=== PATIENT | female | born 1965 | race Hispanic/Latino ===

== ENCOUNTER 2018-09-05 16:36 | Observation (INO) | payer OTHER ==
[2018-09-05 17:11] VITALS: BMI 32.2
[2018-09-05] MEDS ORDERED: Sodium Chloride 0.9% 1,000 ML IV STA (17:17)
[2018-09-05] MEDS ORDERED: Alum-Mag Hydrox-Simethicone Susp (30 mL) PO STA (17:17)
[2018-09-05] MEDS ORDERED: Atrop/Hyosc/Scopal/PB Elixir (120 ml) PO STA (17:19)
[2018-09-05 17:40] LABS: URINE BILIRUBIN NEGATIVE (NEGATIVE); URINE BLOOD NEGATIVE (NEGATIVE); URINE GLUCOSE (UA) NEGATIVE (NEGATIVE); URINE LEUKOCYTE ESTERASE SMALL Leu/uL (NEGATIVE); URINE PROTEIN NEGATIVE mg/dL (<30 mg/dL); URINE UROBILINOGEN 0.2 E.U./dL (<1 E.U./dL)
[2018-09-05 17:41] LABS: URINE APPEARANCE CLEAR (CLEAR); URINE COLOR YELLOW (YELLOW)
[2018-09-05 17:51] LABS: URINE BACTERIA SMALL /hpf; URINE RBC 0 - 2 /hpf (0-2)
[2018-09-05 18:06] LABS: BASO # 0.06 K/mm3 (0.0-2.0); BASO % 0.5 % (0.0-3.0); EOS # 0.6 (0.0-0.7); EOS % 5.2 % (1.5-5.0); HEMOGLOBIN 13.3 g/dL (12.0-16.0); LYMPH # 3.3 (1.2-3.4); LYMPH % 28.8 % (22.0-35.0); MEAN CORPUSCULAR HEMOGLOBIN 30.2 pg (25.0-35.0); MEAN CORPUSCULAR HGB CONC 32.5 g/dl (31.0-37.0); MEAN PLATELET VOLUME 9.3 fl (7.0-11.0); MONO # 1.1 (0.1-0.6); MONO % 9.2 % (1.0-6.0); RBC 4.4 10^6/uL (3.5-6.1); RED CELL DISTRIBUTION WIDTH 13.8 % (11.5-14.5); VENOUS BLOOD GAS BASE EXCESS 10.1 mmol/L (0.0-2.0); VENOUS BLOOD GAS PO2 94 mm/Hg (30-55); VENOUS BLOOD PH 7.43 (7.32-7.43); WHITE BLOOD COUNT 11.5 10^3/uL (4.5-11.0)
[2018-09-05 18:16] LABS: ALB/GLOB RATIO 1.2 (1.1-1.8); ALBUMIN 3.8 g/dL (3.0-4.8); ALT/SGPT 25 U/L (7-56); AST/SGOT 32 U/L (14-36); BLOOD UREA NITROGEN 27 mg/dL (7-21); CALCIUM 9.1 mg/dL (8.4-10.5); GFR NON-AFRICAN AMERICAN > 60; INR 0.87; LIPASE 80 U/L (23-300); PARTIAL THROMBOPLASTIN TIME 29.8 Seconds (26.9-38.3)
[2018-09-05 18:18] LABS: PROTHROMBIN TIME 9.7 SECONDS (9.4-12.5)
[2018-09-05 18:27] LABS: TROPONIN I < 0.01 ng/mL
[2018-09-05] MEDS ORDERED: Iohexol 350 MG/100 ML VIAL ONE (18:43)
--- NOTE | 2018-09-05 18:50 | US ---
Date of service: 09/05/2018 HISTORY: abdominal pain r/o gallstones COMPARISON: None. TECHNIQUE: Grayscale imaging was performed. FINDINGS: LIVER: Measures 14.5 cm. There is diffuse increased echogenicity of the liver parenchyma. No mass. No intrahepatic bile duct dilatation. GALLBLADDER: There are no gallstones, wall thickening or pericholecystic fluid. The sonographic Rosario's sign is negative. COMMON BILE DUCT: Measures 3.0 mm. No stones. No dilatation. PANCREAS: Unremarkable as visualized. No mass. No ductal dilatation. RIGHT KIDNEY: Measures 9.7cm. Normal echogenicity. No calculus, mass, or hydronephrosis. LEFT KIDNEY: Measures 10.2cm. Normal echogenicity. No calculus, mass, or hydronephrosis. SPLEEN: Normal in size and contour. No mass. AORTA: No aneurysmal dilatation. IVC: Unremarkable. OTHER FINDINGS: None. IMPRESSION: Diffuse increased echogenicity in the liver may reflect hepatic steatosis however parenchymal infectious/ inflammatory etiologies cannot be entirely excluded. Clinical and laboratory correlation is advised. No cholelithiasis or biliary dilatation.
--- NOTE | 2018-09-05 18:53 | ED PDOC ---
Arrival/HPI - General Chief Complaint: Back Pain Time Seen by Provider: 09/05/18 17:17 - History of Present Illness Narrative History of Present Illness (Text): 09/05/18 18:47 Patient is a 53F w/a PMH of depression/anxiety, hypothyyroidism, htn, copd Presenting from PMD Dr. Velazquez office where she was complaining of RUQ and R flank. Attending requested evaluation of pain and r/o of cholecystitis. Patient reports pain has been slowly worsening over the past 1 week describes pain is located in her LUQ and RUQ w/ radiation into her flank. Pain is a sharp sensation. Patient reported that pain is not associated w/ eating however movement aggravates pain. Patient reported 1 week ago she saw her primary for bronchitis treatment w/ levofloxacin + prednisone; and associated her abdominal / flank pain with coughing. Brochitis symptoms have resolved at this time. She did report some nausea earlier in the day today however does not have complaints of n/v/d/c at this time. She also denies any chest pain, sob, ayala, dysuria, change in frequency. Remainder 12 system ROS is otherwise negative. PMD: [place] PMH: As above PSH: Denies ALL: NKDA Home RX: as per EMR Social: 07/24 ppd active smoker, etoh denies, illicit denies 09/05/18 20:06 Time/Duration: Prior to Arrival Symptom Onset: Gradual Symptom Course: Worsening Quality: Stabbing Past Medical History - Provider Review Nursing Documentation Reviewed: Yes - Infectious Disease Hx of Infectious Diseases: None - Reproductive Currently : No - Cardiac Hx Hypertension: Yes - Pulmonary Hx Chronic Obstructive Pulmonary Disease (COPD): Yes (Smoker) - Endocrine/Metabolic Hx Hypothyroidism: Yes - Musculoskeletal/Rheumatological Hx Back Pain: Yes - Psychiatric Hx Anxiety: Yes Hx Substance Use: No - Anesthesia Hx Anesthesia: Yes Hx Anesthesia Reactions: No Hx Malignant Hyperthermia: No Family/Social History - Physician Review Nursing Documentation Reviewed: Yes Family/Social History: Unknown Family HX Smoking Status: Heavy Smoker > 10 Cigarettes Daily Hx Alcohol Use: No Hx Substance Use: No Allergies/Home Meds Allergies/Adverse Reactions: Allergies No Known Allergies Allergy (Verified 09/05/18 16:47) Home Medications: Home Meds Medication Instructions Recorded Confirmed ALPRAZolam [Xanax] 1 tab PO BID 09/05/18 09/05/18 Albuterol 0.083% [Albuterol 0.083% 1 vial IH Q6H PRN 09/05/18 09/05/18 Inhal Alisa (2.5 mg/3 ml) UD] Benzonatate [Tessalon Perles] 200 mg PO TID PRN 09/05/18 09/05/18 Budesonide/Formoterol Fumarate 1 puff IH BID 09/05/18 09/05/18 [Symbicort 160-4.5 Mcg Inhaler] Escitalopram [Lexapro] 1 tab PO DAILY 09/05/18 09/05/18 Irbesartan/Hydrochlorothiazide 1 tab PO DAILY 09/05/18 09/05/18 [Irbesartan-Hctz 300-12.5 mg Tb] Levothyroxine [Synthroid] 1 tab PO DAILY 09/05/18 09/05/18 buPROPion [Wellbutrin] 1 tab PO TID 09/05/18 09/05/18 Review of Systems - Physician Review All systems were reviewed & negative as marked: Yes - Review of Systems Constitutional: Normal Eyes: Normal ENT: Normal Respiratory: Normal Cardiovascular: Normal Gastrointestinal: Abdominal Pain, Nausea. absent: Stool Changes, Diarrhea, Vomiting, Appetite Changes Genitourinary Female: Normal Musculoskeletal: Back Pain Skin: Normal Neurological: Normal Endocrine: Normal Hemo/Lymphatic: Normal Psychiatric: Normal Physical Exam Vital Signs Reviewed: Yes Vital Signs Temp Pulse Resp BP Pulse Ox 09/05/18 16:52 97.8 F 99 H 18 134/86 98 Temperature: Afebrile Blood Pressure: Normal Pulse: Regular Respiratory Rate: Normal Appearance: Positive for: Well-Appearing, Non-Toxic, Comfortable Pain Distress: None Mental Status: Positive for: Alert and Oriented X 3 - Systems Exam Head: Present: Atraumatic, Normocephalic Pupils: Present: PERRL Conjunctiva: Present: Normal Mouth: Present: Moist Mucous Membranes Respiratory/Chest: Present: Clear to Auscultation, Good Air Exchange. No: Respiratory Distress, Accessory Muscle Use Cardiovascular: Present: Regular Rate and Rhythm, Normal S1, S2. No: Murmurs Abdomen: Present: Tenderness, Other (LUQ and RUQ tenderness to palpation; ). No: Distention, Guarding Lower Extremity: Present: Normal Inspection. No: Edema Neurological: Present: GCS=15, CN II-XII Intact Skin: Present: Warm, Dry, Normal Color. No: Rashes Psychiatric: Present: Alert, Oriented x 3 Medical Decision Making ED Course and Treatment: 09/05/18 20:13 53F c/o of abdominal pain located int eh RRUQ, LUQ and R flank VSS; Tenderness to palpation on exam CTAP read pending ABd US w/ hepatic steatosisi; no gallbladder disease noted CBC mild leukocytosis UA pyuria w/ bacteruria and leuk esterase Pending CT read at this time 09/05/18 20:[address] scan negative contacted Dr. Ulrich who recommends appropriate analgesic management and discharge to follow up in office Will DC w/ toradol - Lab Interpretations Lab Results: pO2 94 mm/Hg (30-55) H 09/05/18 17:50 VBG pH 7.43 (7.32-7.43) 09/05/18 17:50 VBG pCO2 55.0 (40-60) 09/05/18 17:50 VBG HCO3 36.5 mmol/l (21-28) H 09/05/18 17:50 VBG Total CO2 38.2 mmol.L (22-28) H 09/05/18 17:50 VBG O2 Sat (Calc) 98.8 % (40-65) H 09/05/18 17:50 VBG Base Excess 10.1 mmol/L (0.0-2.0) H 09/05/18 17:50 VBG Potassium 3.8 mmol/L (3.6-5.2) 09/05/18 17:50 Sodium 140.0 mmol/L (132-148) 09/05/18 17:50 Chloride 104.0 mmol/L (98-107) 09/05/18 17:50 Glucose 99 mg/dl (65-105) 09/05/18 17:50 Lactate 1.3 mmol/L (0.7-2.1) 09/05/18 17:50 FiO2 21.0 % 09/05/18 17:50 PT 9.7 SECONDS (9.4-12.5) 09/05/18 17:50 INR 0.87 09/05/18 17:50 APTT 29.8 Seconds (26.9-38.3) 09/05/18 17:50 Troponin I < 0.01 ng/mL 09/05/18 17:50 Total Bilirubin 0.3 mg/dL (0.2-1.3) 09/05/18 17:50 AST 32 U/L (14-36) 09/05/18 17:50 ALT 25 U/L (7-56) 09/05/18 17:50 Alkaline Phosphatase 110 U/L (38-126) 09/05/18 17:50 Total Protein 7.1 g/dL (5.8-8.3) 09/05/18 17:50 Albumin 3.8 g/dL (3.0-4.8) 09/05/18 17:50 Globulin 3.2 gm/dL 09/05/18 17:50 Albumin/Globulin Ratio 1.2 (1.1-1.8) 09/05/18 17:50 Lipase 80 U/L (23-300) 09/05/18 17:50 Urine Color Yellow (YELLOW) 09/05/18 17:35 Urine Appearance Clear (CLEAR) 09/05/18 17:35 Urine pH 6.0 (4.7-8.0) 09/05/18 17:35 Ur Specific [place] 1.020 (1.005-1.035) 09/05/18 17:35 Urine Protein Negative mg/dL (<30 mg/dL) 09/05/18 17:35 Urine Glucose (UA) Negative mg/dL (NEGATIVE) 09/05/18 17:35 Urine Ketones Negative mg/dL (NEGATIVE) 09/05/18 17:35 Urine Blood Negative (NEGATIVE) 09/05/18 17:35 Urine Nitrate Negative (NEGATIVE) 09/05/18 17:35 Urine Bilirubin Negative (NEGATIVE) 09/05/18 17:35 Urine Urobilinogen 0.2 E.U./dL (<1 E.U./dL) 09/05/18 17:35 Ur Leukocyte Esterase Small Aram/uL (NEGATIVE) H 09/05/18 17:35 Urine RBC 0 - 2 /hpf (0-2) 09/05/18 17:35 Urine WBC 5 - 10 /hpf (0-6) H 09/05/18 17:35 Ur Epithelial Cells 4 - 5 /hpf (0-5) 09/05/18 17:35 Urine Bacteria Small /hpf (NONE) 09/05/18 17:35 Urine Other Uyeast /hpf 09/05/18 17:35 I have reviewed the lab results: Yes - RAD Interpretation Narrative RAD Interpretations (Text): 09/05/18 20:23 Abd US impression Diffuse increased echogenicity in the liver may reflect hepatic steatosis however parenchymal infectious/ inflammatory etiologies cannot be entirely excluded. Clinical and laboratory correlation is advised. No cholelithiasis or biliary dilatation. Radiology Orders: 09/05/18 17:17 ABDOMEN COMPLETE [US] Stat 09/05/18 17:18 ABD & PELVIS IV CONTRAST ONLY [CT] Stat - EKG Interpretation EKG Interpretation (Text): 09/05/18 20:24 EKG NSR HR [address]/T WAVE ABNORMALITIES; NORMOAXIS NORMAL INTERVALS - Medication Orders Current Medication Orders: Discontinued Medications Al Hydrox/Mg Hydrox/Simethicone (Maalox Plus 30 Ml) 30 ml PO STAT STA Stop: 09/05/18 17:18 Last Admin: 09/05/18 17:50 Dose: 30 ml Belladonna/Phenobarbital ( Elixir) 5 ml PO STAT STA Stop: 09/05/18 17:20 Last Admin: 09/05/18 17:50 Dose: 5 ml Famotidine (Pepcid) 20 mg IVP STAT STA Stop: 09/05/18 17:18 Last Admin: 09/05/18 17:50 Dose: 20 mg IVP Administration Document 09/05/18 17:50 KV (Rec: 09/05/18 17:57 KV [id number]) Charges for Administration # of IVP Administrations 1 Sodium Chloride (Sodium Chloride 0.9%) 1,000 mls @ 1,000 mls/hr IV .Q1H STA Stop: 09/05/18 18:16 Last Admin: 09/05/18 17:50 Dose: 1,000 mls/hr eMAR Start Stop Document 09/05/18 17:50 KV (Rec: 09/05/18 17:56 KV [id number]) Intravenous Solution Start Date 09/05/18 Start Time 17:50 Ondansetron HCl (Zofran Inj) 4 mg IVP STAT STA Stop: 09/05/18 17:27 Last Admin: 09/05/18 17:50 Dose: 4 mg IVP Administration Document 09/05/18 17:50 KV (Rec: 09/05/18 17:[address] [id number]) Charges for Administration # of IVP Administrations 1 Disposition/Present on Arrival - Present on Arrival Any Indicators Present on Arrival: No History of DVT/PE: No History of Uncontrolled Diabetes: No Urinary Catheter: No History of Decub. Ulcer: No History Surgical Site Infection Following: None - Disposition Have Diagnosis and Disposition been Completed?: Yes Diagnosis: Abdominal pain Disposition: HOME/ ROUTINE Disposition Time: 20:41 Patient Problems: Current Active Problems Problem Status Onset Abdominal pain Acute Condition: STABLE Discharge Instructions (ExitCare): Acute Abdomen (Belly Pain), Adult (DC) Additional Instructions: return to any emergency room with worsening. please see specialist. Prescriptions: Famotidine [Pepcid] 20 mg PO DAILY #20 tab Referrals: Cha Zhou MD [Medical Doctor] - Follow up with primary Forms: [employer] ([place])
[2018-09-05] MEDS ORDERED: Albuterol-Ipratrop 3 mg / 0.5 (3 ml) UD IH PRN (22:45)
[2018-09-05] MEDS ORDERED: Morphine 4 mg/ml ISec IVP PRN (22:49)
[2018-09-05] MEDS: MethylPREDNISolone 40 mg Vial IV SCH (23:05)
[2018-09-05] MEDS: Albuterol-Ipratrop 3 mg / 0.5 (3 ml) UD IH SCH (23:05)
[2018-09-05 23:25] VITALS: O2SAT 98
--- NOTE | 2018-09-06 02:57 | HP ---
DATE OF EXAM: 09/05/2018 HISTORY OF PRESENT ILLNESS: Patient is 53-year-old, was seen in office earlier, complained of intractable right upper quadrant pain radiating to her low mid back. Also, left upper quadrant pain, felt nauseous early this morning. She has this pain for almost one week, got worse this morning while she was at work. She was assisted to come downstairs and she was brought to my office by her work member. Patient was literally crying in the office. She states pain is stabbing, hurts more on movement and coughing. She did feel nauseous in office. So, she was referred to emergency room for further evaluation. Patient states her bronchitis is almost a week and half ago with prednisone and Tessalon Perles with significant improvement. PAST MEDICAL HISTORY: Significant for: 1. COPD. 2. Hypertension. 3. Hypothyroidism. 4. History of anxiety disorder. 5. History of psoriasis. 6. Depression. ALLERGIES: SHE IS NOT ALLERGIC TO ANY MEDICATIONS. MEDICATIONS AT HOME: She is on Lexapro 10 mg daily. She is on Tessalon Perles 400, 3 times as needed, Xanax 0.25 mg t.i.d., Wellbutrin 75 mg twice a day, levothyroxine 25 mg daily, irbesartan/hydrochlorothiazide 300/12.5 daily. She is on Symbicort and Pepcid. SOCIAL HISTORY: She is a heavy smoker. Still smokes almost a pack a day. Socially drinks. FAMILY HISTORY: Significant for mom who of pulmonary hypertension complication. REVIEW OF SYSTEMS: Significant for right flank pain and right upper quadrant pain. PHYSICAL EXAMINATION GENERAL: She is awake, alert, oriented, able to communicate, crying. VITAL SIGNS: She is afebrile, pulse 89, respirations 20, blood pressure 121/79. LUNGS: Bilateral fair airflow. No rhonchi or crackles. HEART: S1 and S2 audible. ABDOMEN: Soft. There is periumbilical right upper quadrant, right flank discomfort. NEUROLOGIC: She is awake, alert, oriented, communicative. LABORATORY DATA: WBC is 11.5, hemoglobin 13.3, hematocrit 40.9, and platelets of 305. PT 9.7. INR 0.87. Chemistry, sodium 138, potassium 3.8, chloride 101, CO2 of 33, BUN 27, creatinine 0.7, blood sugar 197. LFTs are within normal limits. Leukocyte small . CT scan of the abdomen is unremarkable. Abdominal sonogram shows fatty liver. ASSESSMENT: 1. Intractable back pain. 2. Pulmonary hypertension. 3. Chronic obstructive pulmonary disease. 4. Hypertension. 5. Hyperlipidemia. 6. Hypothyroidism. PLAN: We will start the patient on nebulizer treatment with observation for pain control. Order CT scan of the chest and reevaluate. James Ulrich MD
[2018-09-06] MEDS ORDERED: Pantoprazole 40 mg EC Tab PO SCH (06:00)
[2018-09-06] MEDS ORDERED: Levothyroxine 25 MCG TAB PO SCH ×2 (06:00→10:00)
--- NOTE | 2018-09-06 07:38 | CT ---
Date of service: 09/05/2018 PROCEDURE: CT Abdomen and Pelvis with contrast HISTORY: abdominal pain COMPARISON: No prior similar study available for comparison. The patient had ultrasound of abdomen dated 09/05/2018 TECHNIQUE: Contrast dose: 95 mL of Omnipaque 350 intravenously. Axial and reformatted coronal and sagittal CT images of the abdomen and pelvis were obtained after IV contrast administration. Radiation dose: Total exam DLP = 1043.6 mGy-cm. This CT exam was performed using one or more of the following dose reduction techniques: Automated exposure control, adjustment of the mA and/or kV according to patient size, and/or use of iterative reconstruction technique. FINDINGS: LOWER THORAX: No evidence of airspace consolidation or significant pleural effusion. LIVER: Unremarkable. No gross lesion or ductal dilatation. GALLBLADDER AND BILE DUCTS: Unremarkable. PANCREAS: Unremarkable. No gross lesion or ductal dilatation. SPLEEN: Unremarkable. ADRENALS: There is 2 centimeter enhancing nodule/lesion at left adrenal gland of uncertain etiology. The right adrenal gland is grossly unremarkable. KIDNEYS AND URETERS: Unremarkable. No hydronephrosis. No solid mass. VASCULATURE: Unremarkable. No aortic aneurysm. No aortic atherosclerotic calcification or mural plaque present. BOWEL: Unremarkable. No obstruction. No gross mural thickening. APPENDIX: Normal appendix. PERITONEUM: Unremarkable. No free fluid. No free air. LYMPH NODES: Unremarkable. No enlarged lymph nodes. BLADDER: Unremarkable. REPRODUCTIVE: Unremarkable. BONES: There are subacute or old fractures noted in the left lower ribs associated with mild callus formation and slight deformity. There is mild to moderate levoscoliosis in the lower thoracic and lumbar spine. OTHER FINDINGS: There is subcutaneous stranding and edema in soft tissue of the right lateral abdominal wall noted. Correlate clinically for possible recent trauma. IMPRESSION: No definite CT evidence of acute intra abdominal or pelvic abnormality noted in this exam. Multiple left lower ribs fractures noted likely subacute or old. Subcutaneous fat stranding and soft tissue edema noted at the right lateral abdominal wall of uncertain etiology. Please correlate clinically for possible recent trauma. Preliminary report was submitted by [facility] .
[2018-09-06 07:57] LABS: ALB/GLOB RATIO 1.2 (1.1-1.8); ALBUMIN 3.5 g/dL (3.0-4.8); ALT/SGPT 19 U/L (7-56); AST/SGOT 30 U/L (14-36); BLOOD UREA NITROGEN 23 mg/dL (7-21); CALCIUM 8.7 mg/dL (8.4-10.5); GFR NON-AFRICAN AMERICAN > 60
[2018-09-06 09:17] VITALS: BP 121/78; PULSE 75; RESP 20; TEMP 97.7
[2018-09-06] MEDS: Albuterol-Ipratrop 3 mg / 0.5 (3 ml) UD IH SCH ×2 (09:24→13:09)
[2018-09-06] MEDS: MethylPREDNISolone 40 mg Vial IV SCH (09:28)
--- NOTE | 2018-09-06 09:28 | CT ---
Date of service: 09/06/2018 PROCEDURE: CT Chest without contrast HISTORY: rt sided chest pain COMPARISON: Comparison is made to the previous study dated 04/08/2016 TECHNIQUE: Contiguous axial images were obtained through the chest without intravenous contrast enhancement. Sagittal and coronal reconstructions were performed. Radiation dose: Total exam DLP = 807.25 mGy-cm. This CT exam was performed using one or more of the following dose reduction techniques: Automated exposure control, adjustment of the mA and/or kV according to patient size, and/or use of iterative reconstruction technique. FINDINGS: LUNGS: Moderate to severe emphysematous changes predominant in the upper lobes are again noted. No evidence of new infiltrate or consolidation in the lungs. MEDIASTINUM: Unremarkable thoracic aorta. No aneurysm. Normal sized heart. Main pulmonary artery unremarkable. No vascular congestion. No lymphadenopathy. No aortic atherosclerotic calcification. PLEURA: No pleural fluid. No pneumothorax. BONES: No evidence of acute displaced fracture. There are subacute or old right lower ribs 5 fractures associated with callus formation. UPPER ABDOMEN: Grossly unremarkable. OTHER FINDINGS: There is right lateral lower chest and right upper abdomen edema and subcutaneous stranding of uncertain etiology. Correlate clinically for recent trauma. IMPRESSION: No evidence of acute pulmonary disease. Again noted are moderate to severe diffuse emphysematous changes predominant in the upper lobes. Subacute or old right rib fractures are noted. Subcutaneous fat stranding and soft tissue edema noted at right lateral lower chest wall and right lateral upper abdominal wall.
[2018-09-06] MEDS ORDERED: Bupivacaine 0.75% Inj(30mL) IJ ONE (12:08)
[2018-09-06] MEDS ORDERED: MethylPREDNISolone Depo 80 mg/ml (5 ml) Inj INJ ONE (12:10)
--- NOTE | 2018-09-06 13:01 | CARD ---
APPROVED REPORT Date of service: 09/05/2018 EKG Measurement Heart [id number] <Conclusion> Sinus tachycardia Otherwise normal ECG
--- NOTE | 2018-09-06 13:35 | CP.PCM.CON ---
<Ricci Alcantar - Last Filed: 09/06/18 16:06> History of Present Illness - History of Present Illness History of Present Illness: Ricci Alcantar, PGY-1 Surgical Consult Note for Dr. Huddleston Ms. Adan is a 53 year old F with a PMHx of depression/anxiety, hypothyroidism, HTN, COPD, chronic lower back pain who is admitted to the [facility] due to R flank/RUQ pain. The surgical team was consulted for possible costochondritis. Patient reports pain has been slowly worsening over the past week, and endorses that the sharp, stabbing pain is located in her R flank along with intermittent sharp epigastric pain. No radiation was reported. Patient did note that the pain is exacerbated by movement and deep coughs from a recent bout of reported bronchitis. Patient reports normal appetite, no vomiting. She did report a passing wave of nausea yesterday, but currently denies any related symptoms. She also denies any fevers, chills, chest pain, shortness of breath, dyspnea on exertion, palpitations, recent trauma, rash, dysuria, headaches, blurry vision, changes in bowel habits. PMD: Dr. Ulrich PMH: depression/anxiety, hypothyroidism, HTN, COPD, chronic lower back pain PSH: Denies ALL: NKDA Home RX: as per EMR Social: 1 ppd active smoker, denies etoh and illicit drugs Review of Systems - Review of Systems All systems: reviewed and no additional remarkable complaints except Review of Systems: 12 point ROS completed and negative except as described in HPI. Past Patient History - Infectious Disease Hx of Infectious Diseases: None - Past Social History Smoking Status: Heavy Smoker > 10 Cigarettes Daily - CARDIAC Hx Hypertension: Yes - PULMONARY Hx Chronic Obstructive Pulmonary Disease (COPD): Yes (Smoker) - NEUROLOGICAL Hx Neurological Disorder: No - HEENT Hx HEENT Problems: No - RENAL Hx Chronic Kidney Disease: No - ENDOCRINE/METABOLIC Hx Hypothyroidism: Yes - HEMATOLOGICAL/ONCOLOGICAL Hx Blood Disorders: No - INTEGUMENTARY Hx Dermatological Problems: No - MUSCULOSKELETAL/RHEUMATOLOGICAL Hx Back Pain: Yes Hx Falls: No - GASTROINTESTINAL Hx Gastrointestinal Disorders: No - GENITOURINARY/GYNECOLOGICAL Hx Genitourinary Disorders: No - PSYCHIATRIC Hx Anxiety: Yes Hx Depression: Yes Hx Substance Use: No (denies) - SURGICAL HISTORY Hx Surgeries: No - ANESTHESIA Hx Anesthesia: Yes Hx Anesthesia Reactions: No Hx Malignant Hyperthermia: No Meds Home Medications: Home Medication List Medication Instructions Recorded Confirmed Type RX: Levothyroxine [Synthroid] 25 mcg PO 0600 tab 09/06/18 Rx RX: Meloxicam [Mobic] 15 mg PO DAILY tab 09/06/18 Rx RX: buPROPion [Wellbutrin] 75 mg PO BID tab 09/06/18 Rx Allergies/Adverse Reactions: Allergies Allergy/AdvReac Type Severity Reaction Status Date / Time No Known Allergies Allergy Verified 09/05/18 16:47 - Medications Medications: Current Medications Albuterol/Ipratropium (Duoneb 3 Mg/0.5 Mg (3 Ml) Ud) 3 ml IH Q2H PRN PRN Reason: Shortness of Breath Albuterol/Ipratropium (Duoneb 3 Mg/0.5 Mg (3 Ml) Ud) 3 ml IH Q1CURTD [facility] Last Admin: 09/06/18 13:09 Dose: 3 ml Alprazolam (Xanax) 0.25 mg PO BID [facility]; Protocol Stop: 09/12/18 22:46 Last Admin: 09/06/18 09:28 Dose: Not Given Benzonatate (Tessalon Perles) 200 mg PO TID PRN PRN Reason: Cough Last Admin: 09/06/18 09:28 Dose: 200 mg Bupropion HCl (Wellbutrin) 75 mg PO BID [facility] Last Admin: 09/06/18 09:28 Dose: 75 mg Cyclobenzaprine HCl (Flexeril) 5 mg PO TID [facility] Last Admin: 09/06/18 09:19 Dose: Not Given Escitalopram Oxalate (Lexapro) 10 mg PO DAILY [facility] Last Admin: 09/06/18 09:13 Dose: Not Given Levothyroxine Sodium (Synthroid) 25 mcg PO 0600 [facility] Last Admin: 09/06/18 05:35 Dose: 25 mcg Meloxicam (Mobic) 15 mg PO DAILY [facility] Last Admin: 09/06/18 09:14 Dose: Not Given Methylprednisolone (Solu-Medrol) 30 mg IV Q12 [facility] Last Admin: 09/06/18 09:28 Dose: 30 mg Morphine Sulfate (Morphine) 4 mg IVP Q6H PRN PRN Reason: Pain, moderate (4-7) Ondansetron HCl (Zofran Inj) 4 mg IVP Q6H PRN PRN Reason: Nausea/Vomiting Pantoprazole Sodium (Protonix Ec Tab) 40 mg PO 0600 [facility] Last Admin: 09/06/18 05:35 Dose: 40 mg Physical Exam - Constitutional Appears: No Acute Distress, Agitated - Head Exam Head Exam: ATRAUMATIC, NORMAL INSPECTION, NORMOCEPHALIC - Eye Exam Eye Exam: EOMI, Normal appearance Pupil Exam: PERRL - ENT Exam ENT Exam: Mucous Membranes Moist - Neck Exam Neck exam: Positive for: Normal Inspection - Respiratory Exam Respiratory Exam: Decreased Breath Sounds, Clear to Auscultation Bilateral, Wheezes (Mild expiratory wheezes), NORMAL BREATHING PATTERN. absent: Rales, Rhonchi, Respiratory Distress - Cardiovascular Exam Cardiovascular Exam: RRR, +S1, +S2 - GI/Abdominal Exam GI & Abdominal Exam: Soft, Tenderness (pinpoint tenderness along R flank at level of ribs 9-10). absent: Distended, Firm, Guarding - Extremities Exam Extremities exam: Positive for: full ROM, normal inspection. Negative for: pedal edema - Back Exam Back exam: absent: CVA tenderness (L), CVA tenderness (R) - Neurological Exam Neurological exam: Alert, Oriented x3 - Psychiatric Exam Psychiatric exam: Anxious - Skin Skin Exam: Dry, Intact, Normal Color, Warm Results - Vital Signs Recent Vital Signs: Last Vital Signs Temp 97.7 F 09/06/18 09:17 Pulse 75 09/06/18 09:17 Resp 20 09/06/18 09:17 BP 121/78 09/06/18 09:17 Pulse Ox 98 09/06/18 09:17 - Labs Result Diagrams: 09/05/18 17:50 09/06/18 07:00 Labs: Laboratory Results - last 24 hr 09/05/18 09/05/18 09/05/18 17:35 17:50 17:50 WBC 11.5 H RBC 4.40 Hgb 13.3 Hct 40.9 MCV 93.0 MCH 30.2 MCHC 32.5 RDW 13.8 Plt Count 305 MPV 9.3 Neut % (Auto) 56.3 Lymph % (Auto) 28.8 [place] % (Auto) 9.2 H Eos % (Auto) 5.2 H Baso % (Auto) 0.5 Lymph # (Auto) 3.3 [place] # (Auto) 1.1 H Eos # (Auto) 0.6 Baso # (Auto) 0.06 Absolute Neuts (auto) 6.47 PT 9.7 INR 0.87 APTT 29.8 pO2 VBG pH VBG pCO2 VBG HCO3 VBG Total CO2 VBG O2 Sat (Calc) VBG Base Excess VBG Potassium Sodium Chloride Glucose Lactate FiO2 Potassium Carbon Dioxide Anion Gap BUN Creatinine Est GFR ( Amer) Est GFR (Non-Af Amer) Random Glucose Calcium Magnesium Total Bilirubin AST ALT Alkaline Phosphatase Troponin I Total Protein Albumin Globulin Albumin/Globulin Ratio Lipase Venous Blood Potassium Urine Color Yellow Urine Appearance Clear Urine pH 6.0 Ur Specific Saxis 1.020 Urine Protein Negative Urine Glucose (UA) Negative Urine Ketones Negative Urine Blood Negative Urine Nitrate Negative Urine Bilirubin Negative Urine Urobilinogen 0.2 Ur Leukocyte Esterase Small H Urine RBC 0 - 2 Urine WBC 5 - 10 H Ur Epithelial Cells 4 - 5 Urine Bacteria Small Urine Other Uyeast 09/05/18 09/05/18 09/05/18 17:50 17:50 23:40 WBC RBC Hgb Hct MCV MCH MCHC RDW Plt Count MPV Neut % (Auto) Lymph % (Auto) [place] % (Auto) Eos % (Auto) Baso % (Auto) Lymph # (Auto) [place] # (Auto) Eos # (Auto) Baso # (Auto) Absolute Neuts (auto) PT INR APTT pO2 94 H VBG pH 7.43 VBG pCO2 55.0 VBG HCO3 36.5 H VBG Total CO2 38.2 H VBG O2 Sat (Calc) 98.8 H VBG Base Excess 10.1 H VBG Potassium 3.8 Sodium 140.0 138 Chloride 104.0 101 Glucose 99 Lactate 1.3 FiO2 21.0 Potassium 3.8 Carbon Dioxide 33 Anion Gap 8 L BUN 27 H Creatinine 0.7 Est GFR ( Amer) > 60 Est GFR (Non-Af Amer) > 60 Random Glucose 97 Calcium 9.1 Magnesium 2.3 H Total Bilirubin 0.3 AST 32 ALT 25 Alkaline Phosphatase 110 Troponin I < 0.01 < 0.01 Total Protein 7.1 Albumin 3.8 Globulin 3.2 Albumin/Globulin Ratio 1.2 Lipase 80 Venous Blood Potassium 3.8 Urine Color Urine Appearance Urine pH Ur Specific Saxis Urine Protein Urine Glucose (UA) Urine Ketones Urine Blood Urine Nitrate Urine Bilirubin Urine Urobilinogen Ur Leukocyte Esterase Urine RBC Urine WBC Ur Epithelial Cells Urine Bacteria Urine Other 09/06/18 07:00 WBC RBC Hgb Hct MCV MCH MCHC RDW Plt Count MPV Neut % (Auto) Lymph % (Auto) [place] % (Auto) Eos % (Auto) Baso % (Auto) Lymph # (Auto) [place] # (Auto) Eos # (Auto) Baso # (Auto) Absolute Neuts (auto) PT INR APTT pO2 VBG pH VBG pCO2 VBG HCO3 VBG Total CO2 VBG O2 Sat (Calc) VBG Base Excess VBG Potassium Sodium 141 Chloride 106 Glucose Lactate FiO2 Potassium 3.9 Carbon Dioxide 29 Anion Gap 10 BUN 23 H Creatinine 0.7 Est GFR ( Amer) > 60 Est GFR (Non-Af Amer) > 60 Random Glucose 188 H Calcium 8.7 Magnesium Total Bilirubin 0.3 AST 30 ALT 19 Alkaline Phosphatase 97 Troponin I Total Protein 6.5 Albumin 3.5 Globulin 3.0 Albumin/Globulin Ratio 1.2 Lipase Venous Blood Potassium Urine Color Urine Appearance Urine pH Ur Specific Saxis Urine Protein Urine Glucose (UA) Urine Ketones Urine Blood Urine Nitrate Urine Bilirubin Urine Urobilinogen Ur Leukocyte Esterase Urine RBC Urine WBC Ur Epithelial Cells Urine Bacteria Urine Other Assessment & Plan - Assessment and Plan (Free Text) Assessment: Ms. Adan is a 53 F with PMHx of depression/anxiety, hypothyroidism, HTN, COPD, chronic lower back pain who presents with R flank pain. Imaging was performed to elucidate the etiology of the pain: Abd U/S was performed which showed diffuse increased echogenicity in the liver may reflect hepatic steatosis without cholelithiasis or biliary dilatation. CT abd/pel was performed which showed subcutaneous fat stranding and soft tissue edema noted at the right lateral abdominal wall. CT chest without contrastwas then performed which showed subacute or old right rib fractures, subcutaneous fat stranding and soft tissue edema noted at right lateral lower chest wall and right lateral upper abdominal wall. Plan: - No surgical intervention warranted at this time - Depo-medrol 80 mg injection for pain relief - Further medical management per medical team - If pain controlled, can be discharged from surgical perspective Ricci Alcantar, PGY-1 <Danny Huddleston - Last Filed: 09/08/18 16:30> Results - Vital Signs Recent Vital Signs: Last Vital Signs Temp 97.7 F 09/06/18 09:17 Pulse 75 09/06/18 09:17 Resp 20 09/06/18 09:17 BP 121/78 09/06/18 09:17 Pulse Ox 98 09/06/18 09:17 - Labs Result Diagrams: 09/05/18 17:50 09/06/18 07:00 Assessment & Plan - Assessment and Plan (Free Text) Plan: Dx 2 trigger points injected(bupivicaine-DepoMedrol) with full relief of pain Wero cons Rx-No surgery recommended This consult done undermy direct supervision Palmira Huddleston MD FACS
--- NOTE | 2018-09-07 00:35 | DS ---
HISTORY OF PRESENT ILLNESS: The patient is 53 years old, who was seen in office yesterday with excruciating right flank pain, mid back radiating to right upper quadrant also some discomfort at periumbilical area, so the patient was referred to emergency room for further evaluation to rule out cholelithiasis versus renal colic. The patient has workup done. CT of the abdomen and pelvis was unremarkable. CT of the chest was also unremarkable. PAST MEDICAL HISTORY: Significant for; 1. Hypertension. 2. History of depression. 3. Pulmonary hypertension. 4. COPD. HABITS: The patient is a active heavy smoker. IMAGING DATA: The patient has CT of the abdomen, pelvis, and chest done unremarkable except emphysematous changes and some edema in the right upper abdomen and abdominal wall. Sonogram shows fatty infiltration also. PHYSICAL EXAMINATION: GENERAL: On examination today she still has some abdominal discomfort, but no nausea, vomiting, no diarrhea. She is tolerating food very well. Right upper flank, however, upon taking deep breath, coughing, racing heart, otherwise feel better than before. VITALS SIGNS: She is afebrile, pulse 75, respirations 20, and blood pressure 121/78. LUNGS: Bilateral fair airflow. Decreased breath sounds. HEART: S1 and S2 audible. ABDOMEN: Soft and nontender. No rebound. No guarding. NEUROLOGIC: The patient is awake, alert, oriented, able to communicate. LABORATORY DATA: WBC 11.5, hemoglobin 13, hematocrit 40, and platelet 305. Chemistry; sodium 141, potassium 3.9, chloride 106, CO2 of 29, BUN 23, creatinine 0.7, and blood sugar 188. ASSESSMENT: 1. Right flank pain probably musculoskeletal pain. 2. Chronic obstructive pulmonary disease. 3. Hypertension. 4. Hyperlipidemia. 5. History of depression. 6. Active smoker. DISCHARGE PLAN: The patient is being discharged home. She has Mobic at home. She has Flexeril at home and she does not want to take any narcotics. She was evaluated by Dr. Kaden nicholas and the patient had trigger point injection given. We will follow up the patient in a week. James Ulrich MD
== END 2018-09-06 18:52 | disposition home or self-care (01) ==
LOC: ED 16:36 → ERH 21:42 → 5RNO 09-06 01:11
PROVIDERS: ADMIT Internal Medicine; ATTEND Internal Medicine
DX: R10.11 Right upper quadrant pain (principal); J44.9 Chronic obstructive pulmonary disease, unspecified; F17.210 Nicotine dependence, cigarettes, uncomplicated; I27.20 Pulmonary hypertension, unspecified; I10 Essential (primary) hypertension; E03.9 Hypothyroidism, unspecified; E78.5 Hyperlipidemia, unspecified; F32.9 Major depressive disorder, single episode, unspecified; F41.9 Anxiety disorder, unspecified; Z79.890 Hormone replacement therapy; Z79.51 Long term (current) use of inhaled steroids; Z79.899 Other long term (current) drug therapy
CPT/HCPCS: 36415; 71250; 74177; 76700; 80053; 81001; 81025; 82803; 83690; 83735; 84484; 85025; 85610; 85730; 87086; 93005; 94640; 96374; 96375; 96376; 99285; G0378; J1885; J2405; J2920; J7030; Q9967